=== PATIENT | female | born 1945 | race Caucasian/White ===

== ENCOUNTER → 2017-05-10 | Outpatient (CLI) | payer OTHER ==
[~2017-05-10] MED LIST: ALBU6.7H INH; DIAZ5TAB PO; LEVO100T4 PO; LOSA50TA PO; UMEC1AER INH
[2017-05-10 09:55] LABS: BLOOD GAS BASE EXCESS -1.1 mmol/L (-2-2); BLOOD GAS CARBOXYHEMOGLOBIN 1.6 % (0-4); BLOOD GAS HCO3 23 mmol/L (22-26); BLOOD GAS O2 HGB SATURATION 93 % (90-100); BLOOD GAS OXYGEN CONTENT 18.3 Vol % (12.0-20.0); BLOOD GAS PCO2 33 mmHG (38-42); BLOOD GAS PO2 74 mmHG (61-120); BLOOD GAS TOTAL HGB 13.9 G/DL (12.0-16.0); CRITICAL VALUE NO; DRAW SITE RT RADIAL; FIO2 21 %; NUMBER OF ARTERIAL PUNCTURES 1; OXYGEN DEVICE ROOM AIR; STAT NO; TEMP CORR TO 98.6; ULNAR PULSE PRESENT
--- NOTE | 2017-05-11 09:41 | RSPPFT ---
DATE OF PROCEDURE: 05/10/17 COMMENTS: Spirometry shows FVC of 2.2 at 91% of predicted, FEV1 of 1.1 at 59%, FEV1/FVC ratio is decreased. Flow is decreased at FEF 25, FEF 50, FEF 75 and FEF 25-75. There is no response after acutely inhaled bronchodilator treatment. Lung volumes show residual volume is normal. TLC is normal. Diffusion capacity is severely decreased. Flow volume loop indicates an obstructive pattern. Room air arterial blood gases show pH of 7.44, PCO2 of 33, PO2 of 74, BiCarb of 23 and O2 Saturation at 93%. IMPRESSION: 1. Moderately severe obstructive lung disease. 2. No response after bronchodilator treatment. 3. Normal lung volumes. 4. Diffusion capacity is severe decreased. 5. Room air arterial blood gases show normal oxygenation.
== END ==
LOC: PHRSP 09:30
PROVIDERS: ATTEND Family Medicine
DX: J44.9 Chronic obstructive pulmonary disease, unspecified (principal)
CPT/HCPCS: 36600; 82805; 94060; 94726; 94729